=== PATIENT | male | born 1965 | race Caucasian/White ===

== ENCOUNTER 2018-09-10 08:15 | Inpatient (IN) ==
[2018-09-05 15:17] LABS: Appearance,Urine CLEAR; Bilirubin,Urine NEG (NEG); Color,Urine YELLOW; Glucose,Urine (UA) NEGATIVE (NEG); Leukocyte Esterase,Urine NEG /uL (NEG); Protein,Urine NEG (NEG); Specific Gravity,Urine 1.018 (1.000-1.035); Urine Blood NEG mg/dL (<0.03); Urobilinogen,Urine NEG (NEG)
[2018-09-05 17:03] LABS: Blood Urea Nitrogen 15 mg/dl (6-20)
[2018-09-05 17:31] LABS: Basophils # (Auto) 0 K/mcL (0.0-0.3); Basophils % (Auto) 0.3 % (0.0-2.0); Eosinophils # (Auto) 0.1 K/mcL (0.0-0.7); Eosinophils % (Auto) 2.5 % (0.0-7.0); Granulocytes % (Auto) 65.7 % (38.0-78.0); Lymphocytes # (Auto) 1.4 K/mcL (1.5-4.8); Lymphocytes % (Auto) 22.4 % (15.5-49.0); Mean Cell Volume 99.7 fL (80.0-100.0); Mean Corpuscular HGB Conc 33.9 g/dL (31.0-36.0); Mean Corpuscular Hemoglobin 33.8 pg (26.0-34.0); Monocytes # (Auto) 0.6 K/mcL (0.1-0.9); Monocytes % (Auto) 9.1 % (1.0-12.0); Platelet Count 208 K/mcL (140-440); RBC 4.41 M/mcL (4.50-5.90); Red Cell Distribution Width 13.6 % (11.5-14.5)
[~2018-09-10 08:15] MED LIST: ACETAMINOPHEN 500 MG TABLET PO SCH; CELECOXIB 200 MG CAPSULE PO SCH; PREGABALIN 75 MG CAPSULE PO SCH; ceFAZolin 1 GM VIAL IV SCH; oxyCODONE 10 MG TAB.ER.12H PO SCH
[2018-09-10] MEDS ORDERED: TRANEXAMIC ACID 1,000 MG/10 ML VIAL IV ONE ×2 (11:47→13:18)
[2018-09-10] MEDS ORDERED: ROPIVACAINE HCL/PF 30 ML VIAL IJ ONE (11:47)
[2018-09-10] MEDS ORDERED: ONDANSETRON 4 MG/2 ML VIAL IV ONE (11:47)
[2018-09-10] MEDS ORDERED: PROPOFOL 200 MG/20 ML VIAL IV ONE (11:47)
[2018-09-10] MEDS ORDERED: DEXAMETHASONE 10 MG/ML VIAL IV ONE (11:47)
[2018-09-10] MEDS ORDERED: fentaNYL 250 MCG/5 ML VIAL IV ONE (11:47)
[2018-09-10] MEDS ORDERED: MIDAZOLAM 5 MG/5 ML VIAL IV ONE (11:47)
[2018-09-10] MEDS ORDERED: SUCCINYLCHOLINE 20 MG/ML ML IV ONE (11:47)
[2018-09-10] MEDS ORDERED: LIDOCAINE HCL/PF 100 MG/5 ML SYRINGE IV ONE (11:47)
[2018-09-10] MEDS ORDERED: GENTAMICIN SULFATE 800 MG/20 ML VIAL IR ONE (12:30)
[2018-09-10] MEDS ORDERED: diphenhydrAMINE 50 MG/ML VIAL IV PRN (12:57)
[2018-09-10] MEDS ORDERED: fentaNYL 100 MCG/2 ML VIAL IV PRN (12:57)
[2018-09-10] MEDS ORDERED: PROMETHAZINE 25 MG/ML VIAL IV PRN (12:57)
[2018-09-10] MEDS ORDERED: LACTATED RINGERS 250 ML IV PRN (12:57)
[2018-09-10] MEDS ORDERED: IPRATROPIUM/ALBUTEROL 3 ML AMPUL.NEB NEB PRN (12:57)
[2018-09-10] MEDS ORDERED: FLUMAZENIL 0.1 MG/ML ML IV PRN (12:57)
[2018-09-10] MEDS ORDERED: KETOROLAC 30 MG/ML VIAL IV PRN (12:57)
[2018-09-10] MEDS ORDERED: BENZOCAINE/MENTHOL 1 LOZENGE PO PRN ×2 (12:57→13:18)
[2018-09-10] MEDS ORDERED: MEPERIDINE 25 MG/ML SYRINGE IV PRN (12:57)
[2018-09-10] MEDS ORDERED: ONDANSETRON 4 MG/2 ML VIAL IV PRN ×2 (12:57→13:18)
[2018-09-10] MEDS ORDERED: NALOXONE HCL 0.4 MG/ML VIAL IV PRN (12:57)
[2018-09-10] MEDS ORDERED: LACTATED RINGERS 1,000 ML IV SCH (13:00)
--- NOTE | 2018-09-10 13:17 | Brief Operative Note ---
Date of procedure: 09/10/18 Pre-op diagnosis: Left shoulder rca and bicep tendonopathy Post-op diagnosis: same Procedure: leftt shoulder reverse tsa and bicep tenodesis Grafts/Implants: Yes Anesthesia: GETA Complications: none Surgeon: Gabriel Brothers Bilingual [employer]: Marino Acevedo Estimated blood loss (cc): 100 Specimens Removed/Pathology: none sent Condition: stable Disposition: PACU
[2018-09-10] MEDS ORDERED: POLYETHYLENE GLYCOL 3350 17 GM PACKET PO PRN (13:18)
[2018-09-10] MEDS ORDERED: ACETAMINOPHEN 325 MG TABLET PO PRN (13:18)
[2018-09-10] MEDS ORDERED: FLEETS ADULT ENEMA PR PRN (13:18)
[2018-09-10] MEDS ORDERED: TEMAZEPAM 15 MG CAPSULE PO PRN (13:18)
[2018-09-10] MEDS ORDERED: HYDROmorphone 2 MG/ML VIAL IV PRN (13:18)
[2018-09-10] MEDS ORDERED: BISACODYL 10 MG SUPP.RECT PR PRN (13:18)
[2018-09-10] MEDS ORDERED: MAGNESIUM HYDROXIDE 30 ML ORAL.SUSP PO PRN (13:18)
--- NOTE | 2018-09-10 14:14 | Operative Note ---
DATE OF OPERATION: 09/10/2018 PREOPERATIVE DIAGNOSIS: Left shoulder rotator cuff arthropathy and biceps tendinopathy and subluxation. 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 PROCEDURE: Left reverse total shoulder and biceps tenodesis. SURGEON: Gabriel Brothers MD TUYERE FITTER: Marino Acevedo PA-C ANESTHESIA: General LMA anesthesia. COMPLICATIONS: None. IMPLANTS PLACED: A size 8 stem cementless, standard thickness poly, 36 mm head with 2 mm of eccentricity and 2 mm of offset, a standard metaglene with 4 screws per nurse's note. The central screw was 32 mm, 6.5 screws, 3 additional screws to hold the metaglene in place. ESTIMATED BLOOD LOSS: About 100 mL DESCRIPTION OF PROCEDURE: The patient was brought to the operating room and put to sleep with general LMA anesthesia. Once asleep, the patient had Ioban placed over the skin and was sterilely prepped and draped. A timeout was performed. We confirmed this as the operative site by initials, consent form and x-rays which were all matched. Preoperative antibiotics and tranexamic acid had been given. Once all confirmed, we then made the deltopectoral interval. This started from the inferior portion of the coracoid into the lateral portion of the deltoid. This 4-inch incision was made. We identified the cephalic vein and retracted the deltoid laterally. We retracted the conjoint tendon medially to protect the contents behind the tendon and released the remnants of the subscap, released the biceps tendon. It was noted at this time there was no supraspinatus and most of the infraspinatus was completely torn. We subluxed the head anteriorly, releasing the inferior capsule and removing osteophytes. We placed the guide, cut the guide at 20 degrees retroversion. Once done, after making the head cut we placed a protective plate which was then used to retract the head posteriorly. Once done, we then placed retractors and performed a 360 degree capsular release as well as removing the remnants of the biceps tendon intraarticularly as well as the labrum. We released the capsule inferiorly along the glenoid. We then placed a central pin and reamed the glenoid. This reamed to the size of 36. We then removed osteophytes inferiorly and placed a 32 mm central screw with excellent fixation. We placed surrounding screws, which measured 24, 36, and 20. These seemed to give excellent purchase. We retightened all screws and placed the 36 mm glenosphere, which was most appropriate for this patient, fitting his anatomy. This then was placed 2 mm of the eccentricity, 2 mm of offset. We then broached up on the humeral side up to the size 8. The bone quality was excellent. We then performed a standard reduction using a standard thickness poly. It was very stable throughout the range of motion, very happy with the tension on the ligaments with 1 mm of play. We irrigated thoroughly and then implanted a size 8 stem with a small amount of cement at the distal end for immediate fixation. Once this was tapped into place we placed a standard poly and this fit very nicely. The range of motion and stability was exceptional, no subluxation with full range of motion as well as no impingement could be identified. The tension, we had 1 mm of play with pulling on the arm. We irrigated thoroughly and then closed the subscap. It was not repaired because of the displacement. We then repaired the biceps tendon using a #1 FiberWire to the pec major. We irrigated thoroughly, closed the deltoid interval with 2-0 Vicryl and closed the skin with 2-0 Vicryl and adhesive closure. The patient tolerated this well. Sterile bandage was applied. A Donjoy sling was fitted and given to the patient at the end of the case. RBH:johnna Job ID: [id number] Doc ID: [id number] Gabriel Brothers MD
--- NOTE | 2018-09-10 14:26 | XRay Report ---
HISTORY: Postop left shoulder replacement FINDINGS: There is a well-positioned reverse shoulder prosthesis. No fracture is present and there are no abnormal soft tissue calcifications around the joint. IMPRESSION: Well-positioned shoulder prosthesis Interpreted and Authenticated by: Surendra Edge 09/10/18
[2018-09-10] MEDS: 0.9 % SODIUM CHLORIDE 10 ML SYRINGE IV SCH ×2 (14:53→22:33)
[2018-09-10] MEDS: oxyCODONE/APAP 5/325MG TABLET PO PRN (16:47)
[2018-09-10] MEDS: KETOROLAC 15 MG/ML VIAL IV PRN (16:47)
[2018-09-10] MEDS: 0.45 % SODIUM CHLORIDE 1,000 ML IV SCH (20:07)
[2018-09-10] MEDS: ceFAZolin 1 GM VIAL IV SCH (20:08)
[2018-09-10] MEDS: DOCUSATE SODIUM 100 MG CAPSULE PO SCH (20:08)
[2018-09-10] MEDS ORDERED: SENNOSIDES 1 TABLET PO SCH (21:00)
[2018-09-11] MEDS: 0.45 % SODIUM CHLORIDE 1,000 ML IV SCH (02:04)
[2018-09-11] MEDS: oxyCODONE/APAP 5/325MG TABLET PO PRN (02:18)
[2018-09-11] MEDS: ceFAZolin 1 GM VIAL IV SCH (03:55)
[2018-09-11] MEDS: 0.9 % SODIUM CHLORIDE 10 ML SYRINGE IV SCH (05:45)
[2018-09-11] MEDS: KETOROLAC 15 MG/ML VIAL IV PRN (06:29)
--- NOTE | 2018-09-11 07:40 | Orthopedic Progress Note ---
Subjective Patient information: Note initiated : 09/11/18 at 7:39 am Service Date, if different from initiated Date: [] Patient: Syd Garg 52 y/o M admitted on 09/10/18 for Left Reverse Total Shoulder Arthroplasty with. Chief Complaint: [Pt is stable this morning on post operative day 1 without any significant concerns or complaints. Patients vital signs have remained stable. Patients dressing is dry and is grossly intact from a neurovascular and motor standpoint. Patients 10 point ROS is otherwise negative. ] Objective Vital signs: Vital Signs Temp Pulse Resp BP BP Pulse Ox 09/11/18 07:33 96.3 F L 67 16 136/78 94 09/11/18 07:30 95 09/11/18 03:28 94 09/11/18 03:00 98.4 F 90 16 119/73 95 09/10/18 23:30 97.9 F 84 16 113/74 95 09/10/18 20:00 98.2 F 85 16 113/74 109/71 96 09/10/18 16:24 115/82 96 09/10/18 15:56 126/83 96 09/10/18 15:24 116/81 97 09/10/18 15:09 121/83 97 09/10/18 14:54 115/74 97 09/10/18 14:40 122/82 96 09/10/18 14:24 98 F 127/86 95 09/10/18 14:16 97.4 F 78 12 128/80 97 09/10/18 14:01 93 H 18 123/88 97 09/10/18 13:46 73 17 117/76 97 09/10/18 13:40 71 10 L 116/69 99 09/10/18 13:35 79 11 L 117/73 97 09/10/18 13:31 97.6 F 72 11 L 112/69 99 09/10/18 08:15 98.1 F 79 14 122/81 122/81 97 Intake and Output 09/10/18 09/11/18 09/11/18 21:59 05:59 13:59 Intake Total 100 / 100 1312 / 1312 Output Total 550 / 550 525 / 525 150 / 150 Balance -450 / -450 787 / 787 -150 / -150 Intake: IV 962 / 962 Sodium Chloride 0.45% 1,000 ml 962 / 962 @ 100 mls/hr IV .Q10H [facility] Rx#: [id number] Oral 350 / 350 IV - Manual Only 100 / 100 Output: Void Amount 550 / 550 525 / 525 150 / 150 Other: Urine Appearance Clear Clear Clear Urine Color Bright Yellow Bright Yellow Pale Urine Odor Normal Normal Normal # Voids 1 Weight 198 lb Intake & Output: Intake & Output 09/10/18 09/11/18 09/11/18 21:59 05:59 13:59 Intake Total 100 / 100 1312 / 1312 Output Total 550 / 550 525 / 525 150 / 150 Balance -450 / -450 787 / 787 -150 / -150 Weight 198 lb Intake: IV 962 / 962 Sodium Chloride 0.45% 1,000 ml 962 / 962 @ 100 mls/hr IV .Q10H [facility] Rx#: [id number] Oral 350 / 350 IV - Manual Only 100 / 100 Output: Void Amount 550 / 550 525 / 525 150 / 150 Other: Urine Appearance Clear Clear Clear Urine Color Bright Yellow Bright Yellow Pale Urine Odor Normal Normal Normal # Voids 1 Incision: Yes healing Incision clean and dry: Yes Dressing: Yes clean Neurological exam IM: Yes motor sensory intact, Yes neurovascular intact Extremities exam IM: Yes neurovascular intact - Labs CBC & BMP: 09/05/18 14:20 09/05/18 14:20 Labs: Orthopedic Labs 09/05/18 14:20 PT 12.7 INR 1.0 APTT 27 09/05/18 14:20 Hgb 14.9 Hct 44.0 Assessment and Plan (1) History of reverse total replacement of left shoulder joint The patient has been educated regarding dressing care, Physical Therapy recommendations, home exercises, restrictions, and follow up appointments. The patient has had all necessary DME prescribed. The patient has remained relatively stable during their hospital course. Leave Dermabond patch intact until followup Status: Acute
--- NOTE | 2018-09-11 07:43 | Discharge Summary ---
Ortho Discharge - TSA - Patient Instructions Diet: Regular Diet Activity: activity as tolerated, weight bearing as tolerated Total Shoulder Protocol: Leave immobilizer in place except for bathing and ROM. Abduction pillow. Continue to wear sling until seen by physician. Codman Pendulum : These exercises use momentum produced by your body to move your shoulder joint. Bend your knees and shift your weight to your front leg, then back, allowing your arm to swing in the same directions. Using the same technique, alternately shift your weight between your right and left legs, allowing your arm to swing from side to side. These exercises are also performed in counterclockwise and clockwise circular motions. Typically these exercises are performed several times per day, for a set number repetitions or minutes, such as 20 times in a row or 5 minutes at a time. Dressing Care: May shower in 2 days - Problem Maintenance (1) History of reverse total replacement of left shoulder joint Status: Acute - Follow Up Plan Follow Up Appointments: Marino Acevedo PA-C [Phys[facility] [employer]] - 09/25/18 1:10 pm Disposition: Home, Self-Care Prognosis: Good Rehab Potential: Good I certify that the patient requires SNF services: No Overall status at discharge: patient is progressing back to baseline - Orders For Discharge Prescriptions: Docusate Sodium [Colace] 100 mg PO BID #60 cap oxyCODONE/APAP [Percocet 5-325 mg] 1 - 2 tab PO Q4HP PRN #60 tab PRN Reason: Pain Level 3-6
[2018-09-11] MEDS: DOCUSATE SODIUM 100 MG CAPSULE PO SCH (09:24)
== END 2018-09-11 11:48 | disposition home or self-care (01) | DRG 483 ==
LOC: MEDSUR 08:15
PROVIDERS: ADMIT Orthopaedic Surgery; ATTEND Orthopaedic Surgery
CPT/HCPCS: 97161